=== PATIENT | female | born 1980 | race Caucasian/White ===

== ENCOUNTER 2024-09-15 15:18 | Emergency (ER) ==
[~2024-09-15] VITALS: Ht 165.1 cm; Wt 59.0 kg
== END 2024-09-15 17:54 | disposition left against medical advice (07) | DRG 951 ==
LOC: ED 15:18 → LWOBS 17:49
DX: Z53.21 Procedure and treatment not carried out due to patient leaving prior to being seen by health care provider (principal)

== ENCOUNTER 2024-11-16 06:22 | Emergency (ER) | payer BC ==
[~2024-11-16] VITALS: Ht 165.1 cm; Wt 81.0 kg
[2024-11-16 06:28] VITALS: BP 135/82
[2024-11-16] MEDS ORDERED: oxyCODONE 5MG/ ACETAMINOPHEN 325MG TAB PO ONE (06:40)
[2024-11-16 07:00] VITALS: BP 128/74
[2024-11-16 07:26] LABS: BASO% 0.4 % (0-3); EOS% 3.1 % (0-8); HEMATOCRIT 38.2 % (37.0-47.0); HEMOGLOBIN 12.9 g/dl (12.0-16.0); IMMATURE GRANULOCYTES 0.3 % (0.0-5.0); LYMPH% 32.6 % (15-41); MEAN CELL VOLUME 91.6 fL CALC (80.0-100.0); MEAN CORPUSCULAR HGB 30.9 pG CALC (26.0-32.0); MEAN CORPUSCULAR HGB CONC 33.8 g/dL CAL (32.0-36.0); MONO% 6.9 % (2-13); NEUT# 6.66 thou/uL (2.00-7.15); NEUT% 56.7 % (42-76); RED BLOOD COUNT 4.17 mill/uL (4.20-5.60); RED CELL DISTRI WIDTH 12.4 % (11.5-15.5)
[2024-11-16 07:38] VITALS: BP 95/66
[2024-11-16 07:47] LABS: ALBUMIN 4.1 g/dL (3.2-5.0); BILIRUBIN, TOTAL 0.4 mg/dL (0.02-1.3); CREATININE 0.6 mg/dL (0.5-1.0); POTASSIUM 3.1 mmol/l (3.5-5.1); TOTAL PROTEIN 6.9 g/dL (6.3-8.2)
[2024-11-16 07:49] VITALS: BP 121/75
[2024-11-16] MEDS ORDERED: POTASSIUM CHLORIDE 20 MEQ/TAB PO ONE (07:50)
[2024-11-16] MEDS ORDERED: PREDNISONE50 MG PO (07:53)
[2024-11-16] MEDS ORDERED: KLOR-CON M2020 MEQ PO (07:53)
[2024-11-16 07:57] VITALS: BP 121/75
== END 2024-11-16 08:00 | disposition home or self-care (01) | DRG 552 ==
LOC: ED 06:22
PROVIDERS: Family Medicine
DX: M54.2 Cervicalgia (principal); E11.40 Type 2 diabetes mellitus with diabetic neuropathy, unspecified; I10 Essential (primary) hypertension; F17.210 Nicotine dependence, cigarettes, uncomplicated

== ENCOUNTER 2024-11-17 12:46 | Observation (INO) | payer BC ==
[~2024-11-17] VITALS: Ht 165.1 cm; Wt 83.6 kg
[2024-11-17] VITALS (12 sets, daily range): BP systolic 111–140; BP diastolic 53–84
[~2024-11-17 12:46] MED LIST: KLOR-CON M2020 MEQ PO; PREDNISONE50 MG PO
[2024-11-17] MEDS ORDERED: ONDANSETRON HCl 4 MG/2 ML SDV IV ONE (13:00)
[2024-11-17] MEDS ORDERED: KETOROLAC TROMETHAMINE 30 MG/ML SDV IV ONE (13:00)
[2024-11-17] MEDS ORDERED: SODIUM CHLORIDE 0.9% 1,000 ML IV ONE (13:00)
[2024-11-17 13:17] LABS: URINE BILIRUBIN - DIPSTICK Negative (NEGATIVE); URINE BLOOD DIPSTICK Large (NEGATIVE); URINE GLUCOSE - DIPSTICK Negative (NEGATIVE); URINE KETONE Negative (NEGATIVE); URINE LEUK ESTERASE Negative (NEGATIVE); URINE NITRITE - DIPSTICK Negative (Negative); URINE PH 6.5 (4.5-8.0); URINE PROTEIN - DIPSTICK 100 mg/dL (NEG-TRACE); URINE SPECIFIC GRAVITY 1.015; URINE UROBILINOGEN - DIPSTICK 0.2 E.U./dL (0.2)
[2024-11-17 13:24] LABS: HEMATOCRIT 37.1 % (37.0-47.0); HEMOGLOBIN 12.6 g/dl (12.0-16.0); IMMATURE GRANULOCYTES 0.7 % (0.0-5.0); LYMPH% 7.7 % (15-41); MEAN CELL VOLUME 91.2 fL CALC (80.0-100.0); MONO% 1.9 % (2-13); NEUT# 23.85 thou/uL (2.00-7.15); NEUT% 89.7 % (42-76); RED BLOOD COUNT 4.07 mill/uL (4.20-5.60); RED CELL DISTRI WIDTH 12.7 % (11.5-15.5)
[2024-11-17 13:27] LABS: URINE COLOR Amber
[2024-11-17 13:28] LABS: URINE RBC 50-100 RBC/hpf (0-5)
[2024-11-17 13:28] LABS: ALBUMIN 4.2 g/dL (3.2-5.0); BILIRUBIN, TOTAL 0.6 mg/dL (0.02-1.3); CREATININE 0.7 mg/dL (0.5-1.0); POTASSIUM 4.1 mmol/l (3.5-5.1)
[2024-11-17 13:29] LABS: URINE SQUAMOUS EPITHELIAL CELL FEW EPI/hpf (0-FEW)
[2024-11-17] MEDS ORDERED: cefTRIAXone SODIUM 2 GM in SODIUM CHLORIDE 0.9% 100 ML IV ONE (13:35)
[2024-11-17] MEDS ORDERED: ACETAMINOPHEN 325 MG/TAB PO PRN (15:35)
[2024-11-17] MEDS ORDERED: SODIUM CHLORIDE 0.9% 1,000 ML IV PRN (15:35)
[2024-11-17] MEDS ORDERED: MAGNESIUM HYDROXIDE 30 ML UDC PO PRN (15:35)
[2024-11-17] MEDS ORDERED: ONDANSETRON HCl 4 MG/2 ML SDV IV PRN (15:40)
[2024-11-17] MEDS ORDERED: traMADol HCL 50 MG/TAB PO PRN (16:55)
[2024-11-17] MEDS ORDERED: INSULIN LISPRO 100 UNITS/ML ML SC SCH (17:00)
[2024-11-17] MEDS ORDERED: GABAPENTIN 300 MG/CAP PO SCH (17:00)
[2024-11-17] MEDS ORDERED: MORPHINE SULFATE 4 MG/ML VIAL IV ONE ×2 (17:25→18:30)
[2024-11-17] MEDS ORDERED: metFORMIN HYDROCHLORIDE 500 MG/TAB PO SCH (17:30)
[2024-11-17] MEDS ORDERED: ENOXAPARIN SODIUM 40 MG/0.4 ML SYR SC SCH (21:00)
[2024-11-18] VITALS (8 sets, daily range): BP systolic 109–131; BP diastolic 63–80
[2024-11-18 04:28] LABS: BASO% 0.1 % (0-3); EOS% 0.3 % (0-8); HEMATOCRIT 35.4 % (37.0-47.0); HEMOGLOBIN 11.9 g/dl (12.0-16.0); IMMATURE GRANULOCYTES 0.6 % (0.0-5.0); MEAN CELL VOLUME 92.2 fL CALC (80.0-100.0); MEAN CORPUSCULAR HGB CONC 33.6 g/dL CAL (32.0-36.0); MONO% 4.5 % (2-13); NEUT# 16.68 thou/uL (2.00-7.15); NEUT% 71.5 % (42-76); RED BLOOD COUNT 3.84 mill/uL (4.20-5.60); RED CELL DISTRI WIDTH 12.8 % (11.5-15.5)
[2024-11-18 04:51] LABS: ALBUMIN 3.5 g/dL (3.2-5.0); BILIRUBIN, TOTAL 0.4 mg/dL (0.02-1.3); CREATININE 0.6 mg/dL (0.5-1.0); MAGNESIUM 1.9 mg/dL (1.6-2.3); POTASSIUM 3.9 mmol/l (3.5-5.1)
[2024-11-18] MEDS ORDERED: CARVEDILOL 25 MG/TAB PO SCH (09:00)
[2024-11-18] MEDS ORDERED: CLOPIDOGREL BISULFATE 75 MG/TAB TAB PO SCH (09:00)
[2024-11-18] MEDS ORDERED: amLODIPine BESYLATE 5 MG/TAB PO SCH (09:00)
[2024-11-18] MEDS ORDERED: PIPERACILLIN Sodium-Tazobactam 3.375 GM in SODIUM CHLORIDE 0.9% 100 ML IV SCH (12:00)
[2024-11-18] MEDS ORDERED: PANTOPRAZOLE SODIUM Sesquihydr 40 MG/TAB PO SCH (14:30)
[2024-11-18] MEDS ORDERED: KLOR-CON M2020 MEQ PO (15:53)
[2024-11-18] MEDS ORDERED: CYCLOBENZAPRINE10 MG PO (15:55)
[2024-11-18] MEDS ORDERED: NAPROXEN500 MG PO (15:55)
[2024-11-18] MEDS ORDERED: AMLODIPINE BESY10 MG PO (15:56)
[2024-11-18] MEDS ORDERED: ABILIFY10 MG PO (15:56)
[2024-11-18] MEDS ORDERED: CARVEDILOL25 MG PO (15:57)
[2024-11-18] MEDS ORDERED: PLAVIX75 MG PO (15:57)
[2024-11-18] MEDS ORDERED: NEURONTIN600 MG PO (15:59)
[2024-11-18] MEDS ORDERED: OMEPRAZOLE DR40 MG (16:01)
[2024-11-18] MEDS ORDERED: TRAMADOL HYDROC50 M1 (16:02)
[2024-11-18] MEDS ORDERED: BUSPAR10 MG (16:04)
[2024-11-18] MEDS ORDERED: AMBIEN5 MG (16:04)
[2024-11-18] MEDS ORDERED: METFORMIN500 M2 (16:05)
[2024-11-19 00:13] VITALS: BP 109/63
[2024-11-19 03:04] VITALS: BP 134/92
[2024-11-19 04:23] VITALS: BP 134/92
[2024-11-19 05:41] VITALS: BP 156/84
[2024-11-19 06:04] LABS: BASO% 0.3 % (0-3); EOS% 1.9 % (0-8); HEMATOCRIT 36.9 % (37.0-47.0); HEMOGLOBIN 12.3 g/dl (12.0-16.0); IMMATURE GRANULOCYTES 0.5 % (0.0-5.0); LYMPH% 46.1 % (15-41); MEAN CELL VOLUME 92.5 fL CALC (80.0-100.0); MEAN CORPUSCULAR HGB 30.8 pG CALC (26.0-32.0); MEAN CORPUSCULAR HGB CONC 33.3 g/dL CAL (32.0-36.0); MONO% 7.2 % (2-13); NEUT# 5.43 thou/uL (2.00-7.15); RED BLOOD COUNT 3.99 mill/uL (4.20-5.60); RED CELL DISTRI WIDTH 12.9 % (11.5-15.5)
[2024-11-19 06:11] LABS: ALBUMIN 3.5 g/dL (3.2-5.0); CREATININE 0.7 mg/dL (0.5-1.0); MAGNESIUM 1.7 mg/dL (1.6-2.3); POTASSIUM 3.8 mmol/l (3.5-5.1); TOTAL PROTEIN 5.8 g/dL (6.3-8.2)
[2024-11-19 06:14] LABS: BILIRUBIN, TOTAL 0.6 mg/dL (0.02-1.3)
[2024-11-19] MEDS ORDERED: MEDDOSEPAK PO (07:46)
[2024-11-19 09:36] VITALS: BP 120/77
[2024-11-19] MEDS ORDERED: TRAMADOL HYDROC50 M1 PO (11:15)
[2024-11-19] MEDS ORDERED: CIPROFLOXACN500 MG PO (11:16)
[2024-11-19] MEDS ORDERED: METRONIDAZOLE500 MG PO (11:16)
== END 2024-11-19 13:27 | disposition home or self-care (01) | DRG 872 ==
LOC: ED 12:46 → ED-I 15:25 → ED 15:31 → MS2 15:32
PROVIDERS: Family Medicine; Nurse Practitioner Family; ADMIT Internal Medicine; ATTEND Internal Medicine
DX: A41.9 Sepsis, unspecified organism (principal); N20.0 Calculus of kidney; K80.20 Calculus of gallbladder without cholecystitis without obstruction; C78.7 Secondary malignant neoplasm of liver and intrahepatic bile duct; C80.1 Malignant (primary) neoplasm, unspecified; I10 Essential (primary) hypertension; E11.9 Type 2 diabetes mellitus without complications; F17.200 Nicotine dependence, unspecified, uncomplicated; Z87.442 Personal history of urinary calculi; Z90.49 Acquired absence of other specified parts of digestive tract; Z85.038 Personal history of other malignant neoplasm of large intestine
CPT/HCPCS: G0378; J0696; J1650; J1815; J2405; J2543